=== PATIENT | female | born 1935 | race Caucasian/White ===

== ENCOUNTER 2019-01-28 22:08 | Inpatient (IN) | payer MEDICARE ==
[~2019-01-28] VITALS: Ht 152.4 cm; Wt 63.5 kg
[~2019-01-28 22:08] MED LIST: AEC81 PO; ALBU8.5H8 IH; ALPR0.5T8 PO; AMIT25TA9 PO; ARFO15VI3 IH; AUD IH; BUDE10.2 IH; FURO20TA4 PO; GABA-531 PO; IRBE300T19 PO; KRIL1CAP12 PO; ROPI0.257 PO; SIMV20TA6 PO; TIOT4MIS2 PO; VITAMIN B 6 PO
[2019-01-28] MEDS ORDERED: ALBUTEROL SULFATE 0.083% 2.5 MG/3 ML INH IH ONE (22:41)
[2019-01-28 22:54] LABS: EOSINOPHILS % (AUTO) 8.4 % (0.0-8.0); HEMATOCRIT 34.1 % (36-48); LYMPHOCYTES % (AUTO) 23.8 % (21.0-51.0); MEAN CORPUSCULAR HEMOGLOBIN 32.9 pg (27.0-33.0); MEAN CORPUSCULAR HGB CONC 33.8 g/dL (32.0-36.0); MEAN CORPUSCULAR VOLUME 97.4 fL (79-99); NEUTROPHILS % (AUTO) 55.8 % (40.0-77.0); PLATELET COUNT (AUTO) 320 K/uL (130-400); WHITE BLOOD COUNT (AUTO) 9.9 K/uL (4.8-10.8)
[2019-01-28 23:05] LABS: CREATININE 0.7 mg/dL (0.5-1.5); POTASSIUM 4.4 mmol/L (3.5-5.1)
[2019-01-28 23:09] LABS: ALBUMIN 3.6 g/dL (3.5-5.0); BILIRUBIN,TOTAL 0.2 mg/dL (0.2-1.0); TOTAL PROTEIN, SERUM 7.6 g/dL (6.0-8.3)
[2019-01-28 23:10] LABS: INR 0.92 (0.85-1.15); PARTIAL THROMBOPLASTIN TIME 23.4 SEC (26.3-35.5); PROTHROMBIN TIME 9.7 SEC (9.6-11.6)
[2019-01-28] MEDS ORDERED: METHYLPREDNISOLONE SOD SUCC 125MG/2ML VIAL ONE (23:26)
[2019-01-28 23:31] LABS: B-TYPE NATRIURETIC PEPTIDE 166 pg/mL (0-100)
[2019-01-29] MEDS ORDERED: CEFTRIAXONE SODIUM 1 GM ONE (00:27)
[2019-01-29] MEDS ORDERED: LEVOFLOXACIN 750 MG/D5W 150 ML 150 ML ONE (00:27)
[2019-01-29 00:34] LABS: ABG HCO3 26.9 mmol/L (21.0-28.0); ABG OXYGEN SATURATION 98.5 % (95.0-99.0); ABG PCO2 48 mmHg (32-45)
[2019-01-29] MEDS: METHYLPREDNISOLONE SOD SUCC 125MG/2ML VIAL IV SCH ×3 (00:45→16:25)
[2019-01-29] MEDS ORDERED: LACTULOSE 20 GM/30 ML UDCUP PO PRN (00:45)
[2019-01-29] MEDS ORDERED: ONDANSETRON HCL 4 MG/2 ML VIAL IV PRN (00:45)
[2019-01-29] MEDS ORDERED: ACETAMINOPHEN 325 MG TAB PO PRN (00:45)
[2019-01-29] MEDS: IPRATROPIUM/ALBUTEROL SULFATE 3 ML SOLUTION IH SCH ×5 (02:30→18:28)
[2019-01-29] MEDS ORDERED: ACETAMINOPHEN 325 MG TAB ONE (02:53)
[2019-01-29] MEDS ORDERED: METHYLPREDNISOLONE SOD SUCC 40MG/ML 1ML ONE (07:28)
[2019-01-29 08:42] VITALS: BP 133/50
[2019-01-29] MEDS: FAMOTIDINE 20MG TAB 20 MG TAB PO SCH ×2 (11:32→21:01)
[2019-01-29] MEDS: ACETAMINOPHEN 325 MG TAB PO PRN ×3 (11:33→21:03)
[2019-01-29] MEDS: ENOXAPARIN SODIUM 30 MG/0.3 ML SQ SCH (11:35)
[2019-01-29] MEDS ORDERED: CALC-1105 PO (11:52)
[2019-01-29] MEDS ORDERED: CHOL200059 PO (11:52)
[2019-01-29] MEDS ORDERED: AMLO2.5T4 PO (11:52)
[2019-01-29] MEDS ORDERED: LOSA100T58 PO (11:52)
[2019-01-29 12:00] VITALS: BP 137/73
--- NOTE | 2019-01-29 13:50 | NUR ---
DCP CM met with pt discussed dc plans. Pt is independent prior to admission, lives at home with spouse. Pt has oxygen equipmetns, nebulizer machine, walker and wheelchair pt states he doesn't use. Denies any other equipments/services. Pt feels safe to go back home, spouse and family able to assist with transportation and needs as necessary. DC plan to home once stable. CM to cont to follow up. Addendum: 01/29/19 at 1352 by JOSE ARNOLD LVN CM Amended: Links added.
[2019-01-29 16:00] VITALS: BP 130/51
[2019-01-29] MEDS: MONTELUKAST SODIUM 10 MG TAB PO SCH (16:24)
[2019-01-29] MEDS: CETIRIZINE HCL 5 MG TABLET PO SCH (16:25)
[2019-01-29 20:44] VITALS: BP 132/60
[2019-01-29] MEDS ORDERED: TEMAZEPAM 7.5 MG CAPSULE PO SCH (21:00)
--- NOTE | 2019-01-29 21:00 | NUR ---
MEDS SHIFT ASSESSMENT DONE, PLEASE REFER TO CHART. PT STILL CLAIMS OF PLEURITIC PAINS. DUE MEDS ADMINISTERED, TYLENOL PO GIVEN FOR PAINS. PT TOLERATED MEDS WELL. KEPT COMFORTABLE IN BED WITH HOB ELEVATED. PT ASKS ABOUT HER HOME MEDS INFORMED PT THAT HOSPITALIST CONGRESSIONAL DISTRICT AIDE WILL BE PAGED AND WILL REFER MEDS. WILL RE-ASSESS PT. Addendum: 01/30/19 at 0309 by EMORY GAMBOA RN RN Amended: Links added.
--- NOTE | 2019-01-29 22:10 | NUR ---
PAGEMayito JUSTICE, HOSPITALIST PODOPEDIATRICIAN, PAGED VIA ANSWERING SERVICE. PRODUCTION MACHINE OPERATOR CALLED BACK AND REFERRED PT'S PAINS AND HOME MEDS. NEW MED ORDER GIVEN. WILL MEDICATE PT.
[2019-01-29] MEDS ORDERED: KETOROLAC TROMETHAMINE 15MG/ML IV ONE (22:30)
[2019-01-29] MEDS ORDERED: KETOROLAC TROMETHAMINE 15MG/ML ONE (22:32)
[2019-01-29 23:13] LABS: APPEARANCE,URINE Clear (CLEAR); BILIRUBIN,URINE Negative (NEGATIVE); COLOR,URINE Yellow (YELLOW); GLUCOSE, URINE (UA) Negative (NEGATIVE); KETONES,URINE Negative (NEGATIVE); LEUKOCYTE ESTERASE ,URINE Negative (NEGATIVE); NITRATE,URINE Negative (NEGATIVE); OCCULT BLOOD,URINE Negative (NEGATIVE); PH,URINE 5.5 (5.0-8.0); PROTEIN,URINE Negative (NEGATIVE); UROBILINOGEN,URINE 0.2 mg/dL (0.2-1.0)
[2019-01-30] VITALS (7 sets, daily range): BP systolic 120–135; BP diastolic 54–67
[2019-01-30] MEDS: METHYLPREDNISOLONE SOD SUCC 125MG/2ML VIAL IV SCH ×2 (00:44→09:00)
--- NOTE | 2019-01-30 02:00 | NUR ---
ROUNDS PT FAIRLY ASLEEP WITH RESPIRATIONS EVEN AND UNLABORED. NO NOTED DISTRESS. KEPT UNDISTURBED FOR NOW. WILL MONITOR PT.
--- NOTE | 2019-01-30 05:30 | NUR ---
ROUNDS PT RESTING WELL, FAIRLY ASLEEP. NO DISTRESS NOTED. KEPT RESTED AND COMFORTABLE. FOR MORE CARE.
[2019-01-30] MEDS: IPRATROPIUM/ALBUTEROL SULFATE 3 ML SOLUTION IH SCH ×3 (06:34→18:17)
[2019-01-30] MEDS: LEVOFLOXACIN 500 MG TABLET PO SCH (08:52)
[2019-01-30] MEDS: FUROSEMIDE 20 MG TABLET PO SCH (08:52)
[2019-01-30] MEDS: CALCIUM 600 + VITAMIN D 400 TABLET PO SCH (08:52)
[2019-01-30] MEDS: FAMOTIDINE 20MG TAB 20 MG TAB PO SCH ×2 (08:53→21:50)
[2019-01-30] MEDS: CETIRIZINE HCL 5 MG TABLET PO SCH (08:53)
[2019-01-30] MEDS: ASPIRIN 81 MG EC TAB PO SCH (08:53)
[2019-01-30] MEDS: MONTELUKAST SODIUM 10 MG TAB PO SCH (08:53)
[2019-01-30] MEDS: ENOXAPARIN SODIUM 30 MG/0.3 ML SQ SCH (08:54)
[2019-01-30] MEDS: PYRIDOXINE HCL 50 MG TABLET PO SCH (09:00)
[2019-01-30] MEDS: **HM** VIT D3 5000 UNITS PO SCH (09:00)
[2019-01-30] MEDS: AMLODIPINE BESYLATE 2.5 MG TAB PO SCH (09:00)
[2019-01-30] MEDS: LOSARTAN 100 MG TABLET PO SCH (09:00)
[2019-01-30 11:06] LABS: HEMATOCRIT 30.4 % (36-48); MEAN CORPUSCULAR VOLUME 96.9 fL (79-99); PLATELET COUNT (AUTO) 275 K/uL (130-400); RED BLOOD CELL COUNT(AUTO) 3.14 MIL/uL (4.00-5.50); RED CELL DISTRIBUTION WIDTH 14.4 % (11.0-15.5); WHITE BLOOD COUNT (AUTO) 12.5 K/uL (4.8-10.8)
[2019-01-30 11:18] LABS: BILIRUBIN,TOTAL 0.3 mg/dL (0.2-1.0); CREATININE 0.8 mg/dL (0.5-1.5); POTASSIUM 4.2 mmol/L (3.5-5.1); TOTAL PROTEIN, SERUM 7.4 g/dL (6.0-8.3)
[2019-01-30] MEDS ORDERED: SODIUM CHLORIDE 0.9% 1000ML 1,000 ML IV SCH (11:30)
[2019-01-30] MEDS ORDERED: HYDROXYZINE HCL 25 MG TABLET PO PRN (11:30)
[2019-01-30] MEDS: METHYLPREDNISOLONE SOD SUCC 40MG/ML 1ML IVP SCH ×2 (14:06→18:16)
[2019-01-30] MEDS: ACETAMINOPHEN 325 MG TAB PO PRN (14:07)
[2019-01-30] MEDS: BUDESONIDE 0.5 MG/2 ML INH IH SCH (18:17)
[2019-01-30] MEDS: GABAPENTIN 300 MG CAPSULE PO SCH (21:49)
[2019-01-30] MEDS: ROPINIROLE HCL 0.25 MG TABLET PO SCH (21:50)
[2019-01-30] MEDS: SIMVASTATIN 20 MG TABLET PO SCH (21:50)
[2019-01-30] MEDS ORDERED: ALPRAZOLAM 0.5 MG TABLET PO PRN (22:15)
[2019-01-30] MEDS ORDERED: ALPRAZOLAM 0.5 MG TABLET ONE (22:38)
[2019-01-31] MEDS: METHYLPREDNISOLONE SOD SUCC 40MG/ML 1ML IVP SCH ×3 (01:41→20:33)
[2019-01-31 03:44] VITALS: BP 118/56
[2019-01-31 06:38] LABS: BASOPHILS % (AUTO) 0.1 % (0.0-5.0); LYMPHOCYTES % (AUTO) 6.2 % (21.0-51.0); MEAN CORPUSCULAR HEMOGLOBIN 33.1 pg (27.0-33.0); MEAN CORPUSCULAR HGB CONC 33.6 g/dL (32.0-36.0); MEAN CORPUSCULAR VOLUME 98.4 fL (79-99); MONOCYTES % (AUTO) 3.1 % (3.0-13.0); NEUTROPHILS % (AUTO) 90.6 % (40.0-77.0); PLATELET COUNT (AUTO) 277 K/uL (130-400); RED BLOOD CELL COUNT(AUTO) 3.25 MIL/uL (4.00-5.50); RED CELL DISTRIBUTION WIDTH 14.2 % (11.0-15.5); WHITE BLOOD COUNT (AUTO) 11.3 K/uL (4.8-10.8)
[2019-01-31 06:50] LABS: ALBUMIN 2.9 g/dL (3.5-5.0); BILIRUBIN,TOTAL 0.4 mg/dL (0.2-1.0); CREATININE 0.7 mg/dL (0.5-1.5); POTASSIUM 4.1 mmol/L (3.5-5.1); TOTAL PROTEIN, SERUM 6.3 g/dL (6.0-8.3)
[2019-01-31] MEDS: BUDESONIDE 0.5 MG/2 ML INH IH SCH ×2 (06:51→18:28)
[2019-01-31] MEDS: IPRATROPIUM/ALBUTEROL SULFATE 3 ML SOLUTION IH SCH ×3 (06:51→18:28)
[2019-01-31] MEDS: **HM** VIT D3 5000 UNITS PO SCH (06:57)
[2019-01-31 08:00] VITALS: BP 132/58
[2019-01-31] MEDS: LEVOFLOXACIN 500 MG TABLET PO SCH (08:53)
[2019-01-31] MEDS: FAMOTIDINE 20MG TAB 20 MG TAB PO SCH ×2 (08:53→20:33)
[2019-01-31] MEDS: MONTELUKAST SODIUM 10 MG TAB PO SCH (08:53)
[2019-01-31] MEDS: CALCIUM 600 + VITAMIN D 400 TABLET PO SCH (08:53)
[2019-01-31] MEDS: ASPIRIN 81 MG EC TAB PO SCH (08:54)
[2019-01-31] MEDS: FUROSEMIDE 20 MG TABLET PO SCH (08:54)
[2019-01-31] MEDS: LOSARTAN 100 MG TABLET PO SCH (08:57)
[2019-01-31] MEDS: PYRIDOXINE HCL 50 MG TABLET PO SCH (08:57)
[2019-01-31] MEDS: AMLODIPINE BESYLATE 2.5 MG TAB PO SCH (08:58)
[2019-01-31] MEDS: ENOXAPARIN SODIUM 30 MG/0.3 ML SQ SCH (09:00)
[2019-01-31] MEDS: CETIRIZINE HCL 5 MG TABLET PO SCH (09:01)
[2019-01-31] MEDS ORDERED: METHYLPREDNISOLONE SOD SUCC 40MG/ML 1ML IVP SCH (09:15)
[2019-01-31 12:00] VITALS: BP 160/69
[2019-01-31] MEDS ORDERED: HYDROXYZINE HCL 25 MG TABLET PO PRN (15:15)
[2019-01-31 16:00] VITALS: BP 150/60
[2019-01-31 19:50] VITALS: BP 136/59
[2019-01-31] MEDS: ROPINIROLE HCL 0.25 MG TABLET PO SCH (20:33)
[2019-01-31] MEDS: SIMVASTATIN 20 MG TABLET PO SCH (20:33)
[2019-01-31] MEDS: ALPRAZOLAM 0.5 MG TABLET PO PRN (20:33)
[2019-01-31] MEDS: GABAPENTIN 300 MG CAPSULE PO SCH (20:34)
[2019-01-31] MEDS: ACETAMINOPHEN 325 MG TAB PO PRN (20:35)
--- NOTE | 2019-01-31 20:35 | NUR ---
MEDS SHIFT ASSESSMENT DONE, PLEASE REFER TO CHART. FIREPROOF DOOR ASSEMBLER JUST DID AN ABDOMINAL SONO. PROVIDED PT WITH SANDWICH TO EAT. DUE MEDS ADMINISTERED AND TYLENOL PO GIVEN FOR HEADACHE, TOLERATED WELL. KEPT RESTED AND COMFORTABLE. CALL LIGHT WITHIN REACH. WILL RE-ASSESS PT. Addendum: 01/31/19 at 2237 by EMORY GAMBOA RN RN Amended: Links added.
[2019-01-31 23:45] VITALS: BP 133/51
--- NOTE | 2019-02-01 02:00 | NUR ---
ROUNDS PT FAIRLY ASLEEP WITH RESPIRATIONS EVEN AND UNLABORED. NO NOTED DISTRESS. KEPT UNDISTURBED FOR NOW WILL MONITOR PT. CALL LIGHT WITHIN REACH.
[2019-02-01 04:00] VITALS: BP 100/50
--- NOTE | 2019-02-01 06:05 | NUR ---
ROUNDS PT RESTING WELL, NO DISTRESS NOTED. NO CONCERNS VERBALIZED. LATIN DANCER IN TO DRAW BLOOD, TOLERATED WELL. KEPT RESTED AND COMFORTABLE. FOR MORE CARE.
[2019-02-01 06:28] LABS: BASOPHILS % (AUTO) 0.1 % (0.0-5.0); HEMATOCRIT 33.4 % (36-48); LYMPHOCYTES % (AUTO) 7.1 % (21.0-51.0); MEAN CORPUSCULAR HEMOGLOBIN 33.3 pg (27.0-33.0); MEAN CORPUSCULAR HGB CONC 34.1 g/dL (32.0-36.0); MEAN CORPUSCULAR VOLUME 97.8 fL (79-99); MONOCYTES % (AUTO) 6.3 % (3.0-13.0); NEUTROPHILS % (AUTO) 86.5 % (40.0-77.0); PLATELET COUNT (AUTO) 267 K/uL (130-400); RED BLOOD CELL COUNT(AUTO) 3.41 MIL/uL (4.00-5.50); RED CELL DISTRIBUTION WIDTH 14.3 % (11.0-15.5); WHITE BLOOD COUNT (AUTO) 9.9 K/uL (4.8-10.8)
[2019-02-01] MEDS: BUDESONIDE 0.5 MG/2 ML INH IH SCH ×2 (06:56→18:20)
[2019-02-01] MEDS: IPRATROPIUM/ALBUTEROL SULFATE 3 ML SOLUTION IH SCH ×3 (06:56→18:20)
[2019-02-01 07:05] LABS: ALBUMIN 2.8 g/dL (3.5-5.0); BILIRUBIN,TOTAL 0.4 mg/dL (0.2-1.0); CREATININE 0.6 mg/dL (0.5-1.5); TOTAL PROTEIN, SERUM 6.1 g/dL (6.0-8.3)
[2019-02-01 08:00] VITALS: BP 146/53
[2019-02-01] MEDS: LOSARTAN 100 MG TABLET PO SCH (09:00)
[2019-02-01] MEDS: **HM** VIT D3 5000 UNITS PO SCH (09:00)
[2019-02-01] MEDS: AMLODIPINE BESYLATE 2.5 MG TAB PO SCH (09:00)
[2019-02-01] MEDS: LEVOFLOXACIN 500 MG TABLET PO SCH (11:10)
[2019-02-01] MEDS: MONTELUKAST SODIUM 10 MG TAB PO SCH (11:11)
[2019-02-01] MEDS: PYRIDOXINE HCL 50 MG TABLET PO SCH (11:11)
[2019-02-01] MEDS: ASPIRIN 81 MG EC TAB PO SCH (11:11)
[2019-02-01] MEDS: FAMOTIDINE 20MG TAB 20 MG TAB PO SCH ×2 (11:12→21:27)
[2019-02-01] MEDS: CALCIUM 600 + VITAMIN D 400 TABLET PO SCH (11:13)
[2019-02-01] MEDS: CETIRIZINE HCL 5 MG TABLET PO SCH (11:13)
[2019-02-01] MEDS: FUROSEMIDE 20 MG TABLET PO SCH (11:13)
[2019-02-01] MEDS: METHYLPREDNISOLONE SOD SUCC 40MG/ML 1ML IVP SCH ×2 (11:14→21:28)
[2019-02-01] MEDS: ENOXAPARIN SODIUM 30 MG/0.3 ML SQ SCH (11:15)
[2019-02-01 11:36] VITALS: BP 139/58
[2019-02-01 16:37] VITALS: BP 138/67
[2019-02-01 20:00] VITALS: BP 154/64
[2019-02-01] MEDS: ROPINIROLE HCL 0.25 MG TABLET PO SCH (21:27)
[2019-02-01] MEDS: ALPRAZOLAM 0.5 MG TABLET PO PRN (21:27)
[2019-02-01] MEDS: SIMVASTATIN 20 MG TABLET PO SCH (21:27)
[2019-02-01] MEDS: GABAPENTIN 300 MG CAPSULE PO SCH (21:28)
[2019-02-02] VITALS: BP 120/57
[2019-02-02 04:00] VITALS: BP 126/57
[2019-02-02 04:57] LABS: BASOPHILS % (AUTO) 0.1 % (0.0-5.0); HEMATOCRIT 35.4 % (36-48); LYMPHOCYTES % (AUTO) 7.3 % (21.0-51.0); MEAN CORPUSCULAR HEMOGLOBIN 32.8 pg (27.0-33.0); MEAN CORPUSCULAR HGB CONC 33.4 g/dL (32.0-36.0); MEAN CORPUSCULAR VOLUME 98.2 fL (79-99); MONOCYTES % (AUTO) 4.7 % (3.0-13.0); NEUTROPHILS % (AUTO) 87.9 % (40.0-77.0); PLATELET COUNT (AUTO) 297 K/uL (130-400); RED CELL DISTRIBUTION WIDTH 14.4 % (11.0-15.5); WHITE BLOOD COUNT (AUTO) 11.7 K/uL (4.8-10.8)
[2019-02-02 05:26] LABS: BILIRUBIN,TOTAL 0.3 mg/dL (0.2-1.0); CREATININE 0.8 mg/dL (0.5-1.5); POTASSIUM 3.4 mmol/L (3.5-5.1); TOTAL PROTEIN, SERUM 6.5 g/dL (6.0-8.3)
[2019-02-02] MEDS ORDERED: LIDOCAINE HCL-MPF 1% 2ML VIAL IV PRN (06:00)
[2019-02-02] MEDS ORDERED: POTASSIUM CHLORIDE 20MEQ/100ML 100 ML IV PRN (06:00)
[2019-02-02] MEDS: BUDESONIDE 0.5 MG/2 ML INH IH SCH (06:38)
[2019-02-02] MEDS: IPRATROPIUM/ALBUTEROL SULFATE 3 ML SOLUTION IH SCH ×2 (06:38→12:00)
[2019-02-02] MEDS: POTASSIUM CHLORIDE 20 MEQ ERTAB PO PRN ×2 (06:56→15:50)
[2019-02-02] MEDS: METHYLPREDNISOLONE SOD SUCC 40MG/ML 1ML IVP SCH (08:27)
[2019-02-02] MEDS: LEVOFLOXACIN 500 MG TABLET PO SCH (08:27)
[2019-02-02] MEDS: FAMOTIDINE 20MG TAB 20 MG TAB PO SCH (08:28)
[2019-02-02] MEDS: FUROSEMIDE 20 MG TABLET PO SCH (08:28)
[2019-02-02] MEDS: PYRIDOXINE HCL 50 MG TABLET PO SCH (08:28)
[2019-02-02] MEDS: CETIRIZINE HCL 5 MG TABLET PO SCH (08:28)
[2019-02-02] MEDS: AMLODIPINE BESYLATE 2.5 MG TAB PO SCH (08:28)
[2019-02-02] MEDS: CALCIUM 600 + VITAMIN D 400 TABLET PO SCH (08:29)
[2019-02-02] MEDS: ASPIRIN 81 MG EC TAB PO SCH (08:29)
[2019-02-02] MEDS: MONTELUKAST SODIUM 10 MG TAB PO SCH (08:29)
[2019-02-02] MEDS: LOSARTAN 100 MG TABLET PO SCH (08:29)
[2019-02-02] MEDS: ENOXAPARIN SODIUM 30 MG/0.3 ML SQ SCH (08:30)
[2019-02-02 08:43] VITALS: BP 134/54
[2019-02-02] MEDS: **HM** VIT D3 5000 UNITS PO SCH (09:00)
[2019-02-02 11:33] VITALS: BP 122/50
[2019-02-02] MEDS ORDERED: MECLIZINE HCL 25 MG TABLET PO PRN (11:45)
[2019-02-02] MEDS ORDERED: LEVO500T89 PO (15:24)
--- NOTE | 2019-02-02 15:55 | NUR ---
CM Note: [facility] pending approval CM met with pt discussed MD recs for [facility], pt agreeable, RONY signed. Offered possible short term placement rehab pulm exercises prior to dc home while waiting for [facility], pt declined, prefer to go home. Faxed order and clinicals to [facility], confirmation received. Spoke to Deangel[facility], received order and clinicals, aware pt will dc home today, per Deangelo will follow up w/pt and [facility] if anything else is needed. Pt safe to DC to home per MD. Primary nurse aware. CM to cont to follow up.
[2019-02-02 16:43] VITALS: BP 152/71
--- NOTE | 2019-02-02 17:50 | NUR ---
Patient discharged in stable condition. Patient has oxygen portable tank at bedside and placed on. Pt given instruction on how to take new prescription Levofloxacin 500mg PO daily and Medrol pack take as directed. Patient verbalized understanding to teaching. F/U with Dr. Jiménez 02/05/19 3:30pm and Nurse unable to make appointment d/t being closed already, patient instructed to make f/u with [facility] in 1-2 weeks. Instructed to come back to ER if chest pain, SOB, or changes in mental status. Instructed that [facility] will take weeks to arrive. Pt verbalized understanding to all teaching and voices no questions or concerns.
[2019-02-03] MEDS ORDERED: PREDNISONE 20 MG TABLET PO SCH (09:00)
== END 2019-02-02 18:00 | disposition home or self-care (01) | DRG 189 ==
LOC: EDH 22:08 → OBSVTOIN 01-29 00:42 → EDHIP 01-29 00:42 → 3DH 01-29 08:09
PROVIDERS: ADMIT Internal Medicine; ATTEND Internal Medicine
DX: J96.22 Acute and chronic respiratory failure with hypercapnia (principal); J44.1 Chronic obstructive pulmonary disease with (acute) exacerbation; J90 Pleural effusion, not elsewhere classified; J96.21 Acute and chronic respiratory failure with hypoxia; E78.5 Hyperlipidemia, unspecified; I10 Essential (primary) hypertension; I25.10 Atherosclerotic heart disease of native coronary artery without angina pectoris; J84.10 Pulmonary fibrosis, unspecified; K82.8 Other specified diseases of gallbladder; R91.1 Solitary pulmonary nodule; Z82.0 Family history of epilepsy and other diseases of the nervous system; Z82.3 Family history of stroke; Z82.49 Family history of ischemic heart disease and other diseases of the circulatory system; Z82.5 Family history of asthma and other chronic lower respiratory diseases; Z83.3 Family history of diabetes mellitus; Z85.038 Personal history of other malignant neoplasm of large intestine; Z87.891 Personal history of nicotine dependence; Z99.81 Dependence on supplemental oxygen
CPT/HCPCS: 36415; 36600; 71045; 71250; 76705; 80053; 81003; 82550; 82803; 83605; 83690; 83735; 83880; 84484; 85025; 85027; 85610; 85730; 87040; 87804; 93005; 94640; 94664; 94667; 94668; 97039; G0378; J0696; J1650; J1885; J1956; J2920; J2930; J7030

== ENCOUNTER → 2022-02-07 | Outpatient (CLI) | payer OTHER ==
[~2022-02-07] MED LIST changes: -ALBU8.5H8 IH; -AMIT25TA9 PO; +AMLO2.5T4 PO; -BUDE10.2 IH; +CHOL200059 PO; +GABA300C PO; -IRBE300T19 PO; +LOSA100T58 PO; +SIMV-43 PO; -SIMV20TA6 PO; -TIOT4MIS2 PO; +[UNRECOGNIZED DRUG - OTHER] PO
== END | disposition home or self-care (01) ==
LOC: OIH 08:29
PROVIDERS: ATTEND Student in an Organized Health Care Education/Training Program
DX: I11.9 Hypertensive heart disease without heart failure (principal); R07.9 Chest pain, unspecified; E78.5 Hyperlipidemia, unspecified; I34.0 Nonrheumatic mitral (valve) insufficiency
CPT/HCPCS: 93306